=== PATIENT | male | born 1985 | race African-American/Black ===

== ENCOUNTER 2024-02-19 13:46 | Emergency (ER) | payer BC ==
[~2024-02-19] VITALS: Ht 177.8 cm; Wt 113.4 kg
[2024-02-19] MEDS ORDERED: Ondansetron4 MG PO (14:15)
[2024-02-19] MEDS ORDERED: Ondansetron Hydrochloride 4 MG TAB SL ONE (14:15)
== END 2024-02-19 14:29 | disposition home or self-care (01) ==
LOC: ED 13:46
DX: A08.4 Viral intestinal infection, unspecified (principal); R19.7 Diarrhea, unspecified; R11.2 Nausea with vomiting, unspecified; G43.909 Migraine, unspecified, not intractable, without status migrainosus

== ENCOUNTER 2024-03-18 17:58 | Emergency (ER) | payer BC ==
[~2024-03-18] VITALS: Ht 180.3 cm; Wt 113.4 kg
[~2024-03-18 17:58] MED LIST: Ondansetron4 MG PO
[2024-03-18] MEDS ORDERED: SODIUM CHLORIDE 0.9% 1,000 ML IV ONE (18:45)
[2024-03-18 18:57] LABS: HEMATOCRIT 42.9 % (42.0-52.0); MEAN CELL VOLUME 90.9 fl (80.0-94.0); MEAN CORPUSCULAR HGB 30.3 pg (27.0-31.0); MEAN CORPUSCULAR HGB CONC 33.3 g/dl (33.0-37.0); MEAN PLATELET VOLUME 9.2 fl (9.6-12.3); PLATELET COUNT AUTOMATED 285 10*3/uL (130-400); RED BLOOD COUNT 4.72 10*6/uL (4.50-5.90); RED CELL DISTRI WIDTH 12.9 % (0-14.5); WHITE BLOOD COUNT 13.6 10*3/uL (4.8-10.8)
[2024-03-18 19:00] LABS: MANUAL DIFF REFLEX YES
[2024-03-18 19:21] LABS: ATYPICAL LYMPHS 3 % (0-0); BASOPHILS 1 % (0-1); TOTAL CELLS COUNTED 100 #CELLS
[2024-03-18 19:22] LABS: PLATELET SUFFICIENCY NORMAL (NORMAL)
[2024-03-18 19:35] LABS: ALKALINE PHOSPHATASE 57 U/L (46-116); BUN 9 mg/dl (9-23); CHLORIDE 104 mmol/L (98-107); POTASSIUM 3.6 mmol/L (3.4-5.1); SGPT/ALT 30 U/L (5-49); TOTAL PROTEIN 7.4 gm/dL (6.0-8.0)
[2024-03-18] MEDS ORDERED: Ondansetron4 MG PO (20:06)
== END 2024-03-18 20:12 | disposition home or self-care (01) ==
LOC: ED 17:58
PROVIDERS: Nurse Practitioner Family
DX: A08.4 Viral intestinal infection, unspecified (principal); Z20.822 Contact with and (suspected) exposure to COVID-19; R11.2 Nausea with vomiting, unspecified; R19.7 Diarrhea, unspecified; M79.10 Myalgia, unspecified site; R53.83 Other fatigue; G43.909 Migraine, unspecified, not intractable, without status migrainosus

== ENCOUNTER 2024-05-13 18:09 | Emergency (ER) | payer BC ==
[~2024-05-13] VITALS: Ht 177.8 cm; Wt 113.4 kg
[2024-05-13] MEDS ORDERED: GUAIFENESIN/DEXTROMETHORPHAN 10 ML UDC PO ONE (18:45)
[2024-05-13 18:54] LABS: BASO # 0.1 10*3/uL (0.0-0.1); BASO % 0.8 % (0.0-1.0); EOS # 0.5 10*3/uL (0.0-0.4); EOS % 3.4 % (1.0-4.0); HEMATOCRIT 44.9 % (42.0-52.0); MEAN CELL VOLUME 90.9 fl (80.0-94.0); MEAN CORPUSCULAR HGB 30.2 pg (27.0-31.0); MEAN CORPUSCULAR HGB CONC 33.2 g/dl (33.0-37.0); MEAN PLATELET VOLUME 9.2 fl (9.6-12.3); MONO # 1.1 10*3/uL (0.1-1.0); MONO % 7.3 % (3.0-9.0); NEUT # 10.4 10*3/uL (2.3-7.9); NEUT % 67.7 % (47.0-73.0); PLATELET COUNT AUTOMATED 332 10*3/uL (130-400); RED BLOOD COUNT 4.94 10*6/uL (4.50-5.90); RED CELL DISTRI WIDTH 13.1 % (0-14.5); WHITE BLOOD COUNT 15.4 10*3/uL (4.8-10.8)
[2024-05-13 19:12] LABS: BUN 11 mg/dl (9-23); CHLORIDE 106 mmol/L (98-107); POTASSIUM 3.2 mmol/L (3.4-5.1)
[2024-05-13] MEDS ORDERED: POTASSIUM CHLORIDE 20 MEQ TAB PO ONE (19:15)
[2024-05-13] MEDS ORDERED: PREDNISONE50 MG PO (19:23)
[2024-05-13] MEDS ORDERED: ZITHROMAX250 MG PO (19:23)
[2024-05-13] MEDS ORDERED: AZITHROMYCIN 250 MG TAB PO ONE (19:25)
[2024-05-13] MEDS ORDERED: DEXAMETHASONE 4 MG TAB PO ONE (19:25)
== END 2024-05-13 19:45 | disposition home or self-care (01) ==
LOC: ED 18:09
PROVIDERS: Nurse Practitioner Family
DX: J98.4 Other disorders of lung (principal); Z20.822 Contact with and (suspected) exposure to COVID-19; E87.6 Hypokalemia; G43.909 Migraine, unspecified, not intractable, without status migrainosus; F17.290 Nicotine dependence, other tobacco product, uncomplicated